=== PATIENT | female | born 1990 | race Caucasian/White ===

== ENCOUNTER 2021-03-30 15:00 | Emergency (ER) | payer BC ==
[2021-03-30] MEDS ORDERED: Ondansetron 4 MG Tab.DIS PO ONE (15:01)
--- NOTE | 2021-03-30 15:17 | EDM.PDOC ---
ED HPI GENERAL MEDICAL PROBLEM - General Stated Complaint: DEHYDRATED/SOB Time Seen by Provider: 03/30/21 15:15 Source of Information: Reports: Patient History Limitations: Reports: No Limitations - History of Present Illness INITIAL COMMENTS - FREE TEXT/NARRATIVE: Lo complains of shortness of breath,and cough,associated with post tussive emesis. As such she has not been eating well and feels deh ydrated.Symptoms lasing intermittently over a week. ED ROS GENERAL - Review of Systems Review Of Systems: Comprehensive ROS is negative, except as noted in HPI. ED EXAM, GI/ABD - Physical Exam Exam: See Below Exam Limited By: No Limitations General Appearance: Alert, WD/WN, No Apparent Distress Eyes: Bilateral: Normal Appearance, EOMI Ears: Normal External Exam Nose: Normal Inspection Throat/Mouth: Normal Inspection Head: Atraumatic Neck: Normal Inspection Respiratory/Chest: No Respiratory Distress, Lungs Clear Cardiovascular: Normal Peripheral Pulses, Regular Rate, Rhythm Course - Vital Signs Last Recorded V/S: Last Vital Signs Temp 97 F 03/30/21 15:05 Pulse 94 03/30/21 15:05 Resp 18 03/30/21 15:05 BP 145/93 H 03/30/21 15:05 Pulse Ox 97 03/30/21 15:05 - Orders/Labs/Meds Orders: Active Orders 24 hr Category Date Time Status Chest 2V [CR] Stat Exams 03/30/21 15:14 Taken Labs: Laboratory Tests 03/30/21 03/30/21 03/30/21 Range/Units 15:20 15:20 15:20 WBC 10.7 H (3.0-10.3) x10-3/uL RBC 5.06 (3.60-5.20) x10(6)uL Hgb 12.2 (11.4-15.5) g/dL Hct 36.3 (34.2-48.2) % MCV 71.8 L (76.7-100.5) fL MCH 24.0 (23.9-33.9) pg MCHC 33.5 (31.9-34.8) g/dL RDW 17.6 H (12.3-16.5) % Plt Count 473 (151-488) x10(3)uL MPV 7.0 L (7.1-12.4) fL Neut % (Auto) 75.0 (30.8-76.2) % Lymph % (Auto) 18.7 (18.4-52.1) % [place] % (Auto) 4.3 L (4.4-15.7) % Eos % (Auto) 1.4 (0.6-8.1) % Baso % (Auto) 0.6 (0.2-1.5) % Neut # (Auto) 8.0 H (1.5-6.3) x10-3/uL Lymph # (Auto) 2.0 (1.0-4.4) x10-3/uL [place] # (Auto) 0.5 (0.3-1.0) x10-3/uL Eos # (Auto) 0.2 (0.0-0.8) x10-3/uL Baso # (Auto) 0.1 (0.0-0.1) x10-3/uL Sodium 144 (135-145) mmol/L Potassium 3.6 (3.5-5.3) mmol/L Chloride 107 (100-110) mmol/L Carbon Dioxide 25 (21-32) mmol/L BUN 7 (7-18) mg/dL Creatinine 0.9 (0.55-1.02) mg/dL Est Cr Clr Drug Dosing TNP Estimated GFR (MDRD) > 60 (>60) BUN/Creatinine Ratio 7.8 L (9-20) Glucose 103 (80-116) mg/dL Lactic Acid 1.2 (0.4-2.0) mmol/L Calcium 9.5 (8.6-10.2) mg/dL C-Reactive Protein (0.5-0.9) mg/dL 03/30/21 Range/Units 15:20 WBC (3.0-10.3) x10-3/uL RBC (3.60-5.20) x10(6)uL Hgb (11.4-15.5) g/dL Hct (34.2-48.2) % MCV (76.7-100.5) fL MCH (23.9-33.9) pg MCHC (31.9-34.8) g/dL RDW (12.3-16.5) % Plt Count (151-488) x10(3)uL MPV (7.1-12.4) fL Neut % (Auto) (30.8-76.2) % Lymph % (Auto) (18.4-52.1) % [place] % (Auto) (4.4-15.7) % Eos % (Auto) (0.6-8.1) % Baso % (Auto) (0.2-1.5) % Neut # (Auto) (1.5-6.3) x10-3/uL Lymph # (Auto) (1.0-4.4) x10-3/uL [place] # (Auto) (0.3-1.0) x10-3/uL Eos # (Auto) (0.0-0.8) x10-3/uL Baso # (Auto) (0.0-0.1) x10-3/uL Sodium (135-145) mmol/L Potassium (3.5-5.3) mmol/L Chloride (100-110) mmol/L Carbon Dioxide (21-32) mmol/L BUN (7-18) mg/dL Creatinine (0.55-1.02) mg/dL Est Cr Clr Drug Dosing Estimated GFR (MDRD) (>60) BUN/Creatinine Ratio (9-20) Glucose (80-116) mg/dL Lactic Acid (0.4-2.0) mmol/L Calcium (8.6-10.2) mg/dL C-Reactive Protein 1.1 H (0.5-0.9) mg/dL Departure - Departure Time of Disposition: 16:14 Disposition: Home, Self-Care 01 Clinical Impression: Cough, Vomiting - Discharge Information Sepsis Event Note (ED) - Focused Exam Vital Signs: Vital Signs Temp Pulse Resp BP Pulse Ox 03/30/21 15:05 97 F 94 18 145/93 H 97 - Problem List & Annotations (1) Cough SNOMED Code(s): 44642175 Code(s): R05 - COUGH Status: Acute Current Visit: No (2) Vomiting SNOMED Code(s): 359447125 Code(s): R11.10 - VOMITING, UNSPECIFIED Status: Acute Current Visit: Yes Qualifiers: Vomiting type: unspecified - Problem List Review Problem List Initiated/Reviewed/Updated: Yes - My Orders Last 24 Hours: My Active Orders 03/30/21 15:14 Chest 2V [CR] Stat - Assessment/Plan Last 24 Hours: My Active Orders 03/30/21 15:14 Chest 2V [CR] Stat Plan: Labs snd [place] looks good. Will DC home on Zofran ODT
[2021-03-30] MEDS ORDERED: Ondansetron 4 MG/2 ML SDV IM ONE (16:15)
--- NOTE | 2021-04-02 11:53 | CR ---
CHEST TWO VIEWS INDICATION: Cough on and off or two months. PA and lateral views of the chest were obtained 03/30/21 - no comparisons. The heart and mediastinum are unremarkable. Mild dextroconvex scoliosis of the upper middle thoracic spine is suggested. Slightly flattened appearing diaphragm leads from the AP diameter raise the question of obstructive airway disease - correlate clinically. No definite active infiltrate or effusion was identified. However, there is bronchial wall cuffing in the mid to lower lung kaminski, which may be on the basis of active peribronchial disease as well as fibrosis, and should be correlated clinically. Evidence of exogenous obesity is noted. IMPRESSION: 1. Bronchial wall cuffing may represent active peribronchial disease - correlate clinically. 2. Mild scoliosis. 3. Exogenous obesity. MTDD
== END 2021-03-30 17:00 | disposition home or self-care (01) ==
LOC: FB.ED 15:00
DX: R05 Cough (principal); R11.10 Vomiting, unspecified
CPT/HCPCS: 36415; 71046; 80048; 83605; 85025; 86140; 96372; 99284; A9270; J2405

== ENCOUNTER 2021-10-26 12:10 | Emergency (ER) | payer OTHER ==
[2021-10-26] MEDS ORDERED: Metoprolol Tartrate 25 MG Tab PO STA (13:34)
[2021-10-26] MEDS ORDERED: Potassium Chloride 20 MEQ Tab.ER PO STA (14:03)
== END 2021-10-26 14:40 | disposition home or self-care (01) ==
LOC: FB.ED 12:10
DX: I48.91 Unspecified atrial fibrillation (principal); E87.6 Hypokalemia; R74.01 Elevation of levels of liver transaminase levels
CPT/HCPCS: 36415; 80053; 84443; 84484; 85025; 93005; 93010; 99283; 99285; A9270

== ENCOUNTER 2021-11-19 19:35 | Emergency (ER) | payer OTHER | END 2021-11-19 21:07 | disposition home or self-care (01) | LOC: FB.ED 19:35 | DX: S63.501A Unspecified sprain of right wrist, initial encounter (principal); S53.42 Ulnohumeral (joint) sprain; I48.91 Unspecified atrial fibrillation; W18.39XA Other fall on same level, initial encounter | CPT/HCPCS: 73080-RT; 73110-RT; 99281; 99283-25 ==

== ENCOUNTER 2021-11-21 07:02 | Day surgery (SDC) | payer OTHER ==
[2021-11-21] MEDS ORDERED: Propofol 200 MG/20 ML SDV IV ONE (07:03)
[2021-11-21] MEDS ORDERED: Midazolam 1 MG/ML 2 ML SDV IV ONE (07:03)
[2021-11-21] MEDS ORDERED: Ondansetron 4 MG/2 ML SDV IVPUSH ONE (07:03)
[2021-11-21] MEDS ORDERED: Lidocaine 2% 100 MG/5 ML Syringe IVPUSH ONE (07:03)
[2021-11-21] MEDS ORDERED: Sodium Chloride 0.9% 10 ML Syringe FLUSH PRN (07:15)
[2021-11-21] MEDS: Lactated Ringers 1,000 ML IV SCH (09:00)
== END 2021-11-21 10:23 | disposition home or self-care (01) ==
LOC: FB.SDS 07:02
PROVIDERS: ATTEND Surgery
DX: K29.50 Unspecified chronic gastritis without bleeding (principal); K44.9 Diaphragmatic hernia without obstruction or gangrene; K21.9 Gastro-esophageal reflux disease without esophagitis; Z91.040 Latex allergy status; Z91.018 Allergy to other foods; Z91.09 Other allergy status, other than to drugs and biological substances; Z79.899 Other long term (current) drug therapy
CPT/HCPCS: 00731-QZ; 88305; 88342; J2250; J2405; J2704; J7120

== ENCOUNTER 2021-12-13 15:23 | Emergency (ER) | payer OTHER ==
[2021-12-13] MEDS ORDERED: Melatonin 3 MG Tab PO STA (21:22)
[2021-12-13] MEDS ORDERED: Zolpidem 5 MG Tab PO STA (21:22)
[2021-12-13] MEDS ORDERED: Losartan 25 MG Tab PO STA (21:51)
[2021-12-14] MEDS ORDERED: Meclizine 25 MG Tab PO ONE (07:25)
[2021-12-14] MEDS ORDERED: Meclizine 25 MG Tab ONE (07:27)
== END 2021-12-14 07:34 ==
LOC: FB.ED 15:23
DX: F90.9 Attention-deficit hyperactivity disorder, unspecified type (principal); F32.A Depression, unspecified; F41.9 Anxiety disorder, unspecified; I10 Essential (primary) hypertension; E66.9 Obesity, unspecified; Z91.040 Latex allergy status; Z79.899 Other long term (current) drug therapy; Z20.822 Contact with and (suspected) exposure to COVID-19; Z68.41 Body mass index [BMI] 40.0-44.9, adult
CPT/HCPCS: 80053; 80307; 81001; 81025; 84439; 84443; 85025; 87635; 99285; A9270; 36415; 99284; U0002

== ENCOUNTER 2022-02-08 21:54 | Emergency (ER) | payer MEDICAID, OTHER | END 2022-02-09 00:15 | disposition home or self-care (01) | LOC: FB.ED 21:54 | DX: J06.9 Acute upper respiratory infection, unspecified (principal); I10 Essential (primary) hypertension; E66.9 Obesity, unspecified; Z68.41 Body mass index [BMI] 40.0-44.9, adult; Z91.040 Latex allergy status; Z79.899 Other long term (current) drug therapy; Z20.822 Contact with and (suspected) exposure to COVID-19 | CPT/HCPCS: 99283; U0002 ==

== ENCOUNTER 2022-04-21 08:06 | Emergency (ER) | payer OTHER ==
[2022-04-21] MEDS ORDERED: Ketorolac 30 MG/ML SDV IM ONE (08:28)
[2022-04-21] MEDS ORDERED: Ondansetron 4 MG Tab.DIS PO PRN (08:35)
[2022-04-21] MEDS ORDERED: SUMAtriptan 6 MG/0.5 ML SDV SUBCUT ONE (09:25)
== END 2022-04-21 10:45 | disposition home or self-care (01) ==
LOC: FB.ED 08:06
DX: G43.909 Migraine, unspecified, not intractable, without status migrainosus (principal); I10 Essential (primary) hypertension; F41.9 Anxiety disorder, unspecified; F32.A Depression, unspecified; E66.9 Obesity, unspecified; Z68.41 Body mass index [BMI] 40.0-44.9, adult; Z91.040 Latex allergy status; Z91.018 Allergy to other foods; Z91.048 Other nonmedicinal substance allergy status; Z79.899 Other long term (current) drug therapy
CPT/HCPCS: 96372; 99283; J1885; J3030; Q0162

== ENCOUNTER 2022-06-23 07:56 | Emergency (ER) | payer OTHER ==
[2022-06-23] MEDS ORDERED: Ketorolac 30 MG/ML SDV IM STA (09:05)
[2022-06-23] MEDS ORDERED: Ondansetron 4 MG Tab.DIS PO STA (09:05)
[2022-06-23] MEDS ORDERED: Meclizine 25 MG Tab PO ONE (09:05)
[2022-06-23 09:42] LABS: ESTIMATED GFR 120 mL/min (>60)
[2022-06-23] MEDS ORDERED: Acetaminophen/HYDROcodone 325-5 MG Tab PO STA (10:17)
== END 2022-06-23 11:00 | disposition home or self-care (01) ==
LOC: FB.ED 07:56
DX: G90.A Postural orthostatic tachycardia syndrome [POTS] (principal); I10 Essential (primary) hypertension; E66.9 Obesity, unspecified; Z79.899 Other long term (current) drug therapy; Z68.41 Body mass index [BMI] 40.0-44.9, adult
CPT/HCPCS: 36415; 80053; 85025; 93005; 96372; 99284; A9270-GY; J1885; Q0162